=== PATIENT | female | born 1935 | race African-American/Black ===

== ENCOUNTER 2016-08-08 14:02 | Inpatient (IN) | payer MEDICARE, OTHER ==
[2016-08-08] VITALS (7 sets, daily range): BP systolic 118–154; BP diastolic 55–63
[~2016-08-08] VITALS: Ht 160 cm; Wt 71.0 kg
[~2016-08-08 14:02] MED LIST: ALEN5TAB2 PO; ALLO300T PO; ATOR40TA59 PO; BISO1TAB10 PO; FURO20TA3 PO; LISI40TA PO
[2016-08-08] MEDS ORDERED: HEPARIN for IV BOLUS 10,000 UNIT/10 ML VIAL. IV PRN (17:00)
[2016-08-08] MEDS ORDERED: ALLO300T PO (18:06)
[2016-08-08] MEDS ORDERED: LISI-334 PO (18:06)
[2016-08-08] MEDS ORDERED: FURO20TA3 PO (18:06)
[2016-08-08] MEDS ORDERED: GABA-586 PO (18:06)
[2016-08-08] MEDS ORDERED: BISO1TAB45 PO (18:06)
[2016-08-08] MEDS ORDERED: ALEN70TA3 PO (18:06)
[2016-08-08] MEDS ORDERED: AMLO5TAB2 PO (18:06)
[2016-08-08] MEDS: HEPARIN 25,000UTS/500ML PREMIX 500 ML IV PRN (19:46)
[2016-08-08] MEDS: GABAPENTIN 300 MG CAPSULE. PO SCH (21:37)
[2016-08-09] VITALS (16 sets, daily range): BP systolic 86–123; BP diastolic 38–70
--- NOTE | 2016-08-09 00:42 | HP ---
ADMIT DATE: 08/08/2016 CHIEF COMPLAINT: Fall, found down. HISTORY OF PRESENT ILLNESS: The patient is a pleasant elderly female, who fell. She was found down. After 12 hours, she presented to the ER for evaluation and was found to have 3 rib fractures. She also has rhabdomyolysis with a CPK of 4300. She is also in heart failure with a BNP of 15,000. She also has chronic renal insufficiency with a creatinine of ____ and a BUN of 47. She also has leukocytosis of 15,000. I discussed the case with the ER physician. We are going to admit the patient, give her fluids, check frequent labs, and consult Cardiology and Nephrology. PAST MEDICAL HISTORY: Reviewed in the computerized system. Please refer to the computerized H and P. ALLERGIES: None. FAMILY HISTORY: Diabetes. SOCIAL HISTORY: She does not drink, smoke, or take drugs. MEDICATIONS: Reviewed. Please refer to the MRAD. REVIEW OF SYSTEMS: GENERAL: No history of weight change, weakness, or fevers. SKIN: No bruising, hair changes, or rashes. EYES: No blurred, double, or loss of vision. NOSE AND THROAT: No history of nosebleeds, hoarseness, or sore throat. HEART: No history of palpitations, chest pain, or shortness of breath on exertion. LUNGS: Denies cough, hemoptysis, wheezing, or shortness of breath. GASTROINTESTINAL: Denies changes in appetite, nausea, vomiting, diarrhea, or constipation. GENITOURINARY: No history of frequency, urgency, hesitancy, or nocturia. NEUROLOGIC: Denies history of numbness, tingling, or tremor. She complains of weakness. PSYCHIATRIC: No history of panic, anxiety, or depression. ENDOCRINE: No history of heat or cold intolerance, polyuria, or polydipsia. EXTREMITIES: Denies muscle weakness, joint pain, pain on walking, or stiffness. PHYSICAL EXAMINATION: VITAL SIGNS: Temperature afebrile, pulse 68, respirations 18, and blood pressure 144/90. GENERAL: She is awake, weak. HEART: Normal S1, S2. LUNGS: Slight crackles. ABDOMEN: Soft. Positive bowel sounds. EXTREMITIES: With 1+ edema. SKIN: No rashes. PSYCHIATRIC: She is stable. VASCULAR: Good capillary refill. ENDOCRINE: No thyromegaly. LYMPHATICS: No cervical nodes. HEMATOPOIETIC: No bruising. LABORATORY DATA: Troponin is 3.4. ASSESSMENT AND PLAN: Fall with rib fractures, [id number] systolic and diastolic heart failure, rhabdomyolysis, kcbxr-[id number] renal failure, azotemia, leukocytosis, and an elevated troponin of 3.4. The patient has been admitted. We will continue checking serial enzymes. ICU monitoring. Consult Cardiology. Consult Nephrology. Gentle IV fluids. PROGNOSIS: Guarded. COURTNEY MACHADO DO DR: SAUNDRA/patricia JOB#: [id number] / [id number]
--- NOTE | 2016-08-09 01:22 | ACF ---
Admission Forms Criteria MUSCULOSKELETAL DISEASE GRG Clinical Indications for Admission to Inpatient Care (Place 'X' for any and all applicable criteria): Hospital admission is needed for appropriate care of the patient because of 1 or more of the following: [X]I. Fracture, dislocation, or other musculoskeletal injury requiring inpatient care(medical) as indicated by 1 or more of the following(4)(5)(6)(7) [ ]a) Vertebral fracture requiring observation for instability or neurologic compromise (8) [ ]b) Compartment syndrome (proven or cannot be ruled out during observation level of care) (9) [ ]c) Limb-threatening injury [ ]d) Major injury requiring inpatient stabilization such as traction initiation or external fixation before internal fixation or closure of complex or open fracture [X]e) Major injury requiring inpatient treatment after emergency or observation level care (as appropriate) [ ]f) Severe pain requiring acute inpatient management [ ]g) Injury with suspicion of abuse or neglect (eg., child, dependent elderly) [ ]II. Newly diagnosed or suspected bone, joint, or orthopedic device infection (e.g., osteomyelitis, septic arthritis) needing 1 or more of the following(1)(2)(3) [ ]a) IV antibiotics that cannot be initiated in other than inpatient setting (e.g., patient too unstable or home infusion not available) [ ]b) Device removal or replacement [ ]c) Bone or soft tissue debridement [ ]d) Joint drainage (drain placement or repetitive aspirations) [ ]III. Severe rheumatologic disease (e.g., systemic lupus erythematosus, rheumatoid arthritis) with complications or comorbidities (Also use Optimal Recovery Care Criteria or General Recovery Criteria as appropriate on the basis of predominant condition), including 1 or more of the following( 10)(11)(12)(13) [ ]a) Severe infection (e.g., EMB[employer]DED [employer] SOFTWARE ENGINEER infection, sepsis) (14) [ ]b) Respiratory complications, including 1 or more of the following : [ ]i) Pleural effusion with respiratory compromise [ ]ii) Pulmonary hypertension with congestive failure [ ]iii) Respiratory failure [ ]iv) Pulmonary hemorrhage (15) [ ]c) Hematologic disease, including 1 or more of the following: [ ]i) Coagulopathy with bleeding [ ]ii) Thrombosis with hypercoagulable state [ ]iii) Thrombotic thrombocytopenic purpura [ ]d) Cerebritis with seizures, psychosis, or other severe abnormalities [ ]e) Vertebral destruction with monitoring needed for cervical myelopathy& possible respiratory compromise [ ]f) Exacerbation that requires inpatient treatment (e.g., intravenous immunosuppression) (16) [ ]g) Acute renal failure [ ]h) Cerebritis with seizures, psychosis, Altered mental status, or other neurologic abnormalities [ ]i) Pericardial effusion with tamponade [ ]j) Vertebral destruction, with monitoring needed for cervical myelopathy and possible respiratory compromise [ ]IV. Severe vasculitis with complications or comorbidities (Also use Optimal Recovery Care Criteria General Recovery Criteria as appropriate on the basis of predominant condition), including 1 or more of the following(11)(12)(17)(18)(19)(20) [ ]a) Exacerbation that requires inpatient treatment (e.g., intravenous immunosuppression) (19)(21) [ ]b) Pulmonary hemorrhage (15) [ ]c) EMB[employer] SYSTEM[employer] SOFTWARE ENGINEER vasculitis with seizures, psychosis, Altered mental status that is severe or persistent, or other severe abnormalities (22) [ ]d) Cerebral infarction [ ]e) Gastrointestinal ischemia [ ]f) Gangrene or threatened amputation [ ]g) Renal failure (16) [ ]h) Other significant complications of vasculitis ( eg., tissue or organ ischemia, organ dysfunction ) [ ]V. Severe myopathy as indicated by 1 or more of the following (28)(29) [ ]a) New onset of airway compromise or inability to swallow [ ]b) Respiratory deterioration with observation needed for impending respiratory failure [ ]c) Exacerbation that requires inpatient treatment (e.g., intravenous immunosuppression) [ ]. Severe crystal gout (arthropathy) indicated by 1 or more of the following (23)(24) [ ]a) Severe pain requiring acute inpatient management [ ]b) Exacerbation that requires inpatient treatment (e.g., intravenous treatment) [ ]VII.Rhabdomyolysis and 1 or more of the following (25)(26)(27) [ ]a) Acute renal failure [ ]b) Need for intravenous hydration after emergency or observation level care (as appropriate) [ ]c) Inability to maintain oral hydration [ ]d) Change in mental status [ ]e) Electrolyte abnormality that remains after emergency or observation level care (as appropriate) [ ]VIII Post amputation complication, as indicated by ANY ONE of the following [ ]a) Infection [ ]b) Dehiscence [ ]c) Myodesis failure [ ]IX. Severe pain requiring acute inpatient management due to musculoskeletal condition [ ]X. Musculoskeletal Disease and ALL of the following: [ ]a) Symptom or finding for which emergency and observation care have failed or are not considered appropriate (Use General Criteria: Observation Care as appropriate) [ ]b) Presence of ANY ONE of the following [ ]i) A General Admission Criteria [ ]ii) A Pediatric General Admission Criteria The original [facility] [employer] content created by [email or web address] [employer] has been revised. The portions of the content which have been revised are identified through the use of italic text or in bold, and [facility] has neither reviewed nor approved the modified material. All other unmodified content is copyright [facility] [employer]. Please see references footnoted in the original [employer] edition 2016 Admission Criteria Met?: Yes KENDALL PUGH August 09, 2016 01:22
[2016-08-09] MEDS: MORPHINE SULFATE 2 MG/ML DISP.SYRIN. IV PRN ×2 (02:55→07:55)
[2016-08-09 03:00] LABS: HEMATOCRIT 31.9 % (36.0-47.0); HEMOGLOBIN 10.6 g/dL (12.0-15.5); RED BLOOD COUNT 3.57 x10^6/uL (3.50-5.40); RED CELL DISTRIBUTION WIDTH 14.8 % (11.5-14.5); WHITE BLOOD COUNT 11.9 x10^3/uL (4.0-11.0)
[2016-08-09] MEDS: FUROSEMIDE 20 MG TABLET PO SCH (07:55)
[2016-08-09] MEDS: oxyCODONE/APAP 5/325 1 TAB TABLET PO PRN ×2 (07:55→13:13)
[2016-08-09] MEDS: amLODIPine BESYLATE 5 MG TABLET PO SCH (07:55)
[2016-08-09] MEDS: LISINOPRIL 20 MG TABLET PO SCH (07:56)
[2016-08-09] MEDS: GABAPENTIN 300 MG CAPSULE. PO SCH ×3 (07:56→20:54)
--- NOTE | 2016-08-09 08:39 | PDOC2 ---
CARDIOLOGY CONSULT NOTE JADAIF COMPLAINT: Fall Problems: HPI: Patient is a pleasant 80-year-old woman who comes to the hospital in the setting of a syncopal event. She recalls walking in her living room and tripping over some carpet and apparently was lying there for several hours. Her daughter found her and she was transported to [facility] where initial evaluation did not reveal any significant pathology except for a rib fracture. She had multiple abrasions on her knees as well as her right arm. In the setting laboratory evaluation also noted elevated CK of up to 4000 and a elevated troponin of 3.9. Due to these abnormalities she was then transported to [facility]. In speaking with the patient she is quite active. She does not have any dementia. She denies any chest pain, orthopnea, PND or lower extremity edema. She still drives and does all her activities of daily living without any significant limitations. PMHX: Hypertension SOCHX: Denies any alcohol, tobacco or illicit drug use. She lives by herself. 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 FAMHX: Noncontributory CURRENT MEDS: Current Medications Medications (Trade) Dose Ordered Sig/Stacey Start Time Stop Time Status Last Admin Dose Admin Amlodipine Besylate (Norvasc) 5 mg DAILY 08/09/16 09:00 08/09/16 07:55 5 MG Furosemide (Lasix) 20 mg DAILY 08/09/16 09:00 08/09/16 07:55 20 MG Gabapentin (Neurontin) 300 mg TID 08/08/16 21:00 08/09/16 07:56 300 MG Heparin Sodium (Porcine) (Heparin Sodium) 1,600 unit PRN Q6HRS PRN 08/08/16 17:00 08/09/16 03:57 1,600 UNIT Heparin Sodium/ Dextrose 500 ml @ 0 mls/hr CONT PRN 08/08/16 17:00 08/08/16 19:46 0 MLS/HR Lisinopril (Prinivil) 20 mg DAILY 08/09/16 09:00 08/09/16 07:56 20 MG Morphine Sulfate 2 mg PRN Q2HR PRN 08/09/16 02:45 08/09/16 07:55 2 MG Oxycodone/ Acetaminophen (Percocet 5/325) 1 tab PRN Q4HRS PRN 08/09/16 02:45 08/09/16 07:55 1 TAB ALLERGIES: Allergies Coded Allergies Type Severity Reaction Last Updated Verified Sulfa (Sulfonamide Antibiotics) Allergy Severe Swelling 08/09/16 Yes ROS: Negative for 10 out of 14 systems reviewed unless otherwise mentioned above in history of present illness PHYSICAL EXAM: Vital Signs: Vital Signs Date Time Temp Pulse Resp B/P (MAP) Pulse Ox O2 Delivery O2 Flow Rate FiO2 08/09/16 07:56 56 119/61 08/09/16 07:55 21 100 Room Air 08/09/16 04:00 99.8 99.8 I & O Intake and Output 08/09/16 07:00 Intake Total 120 ml Output Total 745 ml Balance -625 ml Intake IV Total 120 ml Output Urine Total 745 ml Physical Exam: In general she is alert and oriented no acute distress. Head and neck exam is unremarkable Regular rate and rhythm without any murmurs rubs gallops Abdomen is soft nontender nondistended Extremities no clubbing cyanosis but minimal edema is present. Bilateral great toes have ecchymoses likely related to the fall. She has an abrasion on her right knee and right forearm. No joint tenderness is noted Neurologically no focal deficits are noted Skin does not have any rashes Normal mood and affect. DIAGNOSTIC TESTING: Cardiac enzymes initially elevated to 3.9 troponin now downtrending to 1.2 EKG with sinus bradycardia and no acute ST-T wave changes Hemoglobin 10.6 Platelets 242 ASSESSMENT: 1. Syncope likely related to mechanical fall 2. Possible rhabdomyolysis 3. Non-ST elevation myocardial infarction with a peak troponin of 3.9 cannot rule out underlying component of rhabdomyolysis leading to elevated troponin 4. Hypertension PLAN: 1. Continue heparin drip. Her troponin is downtrending 2. I discussed the need for possible cardiac catheterization after stabilization and we will pursue this likely prior to discharge. 3. Repeat basic metabolic panel and evaluate renal function Continue current medical therapy with excellent blood pressure control. We'll follow along closely. Discussed with family at bedside. SRIDEVI LEWIS MD August 09, 2016 08:39
--- NOTE | 2016-08-09 08:44 | CARD ---
APPROVED REPORT EXAM: Two-dimensional and M-mode echocardiogram with Doppler and color Doppler. Other Information Quality : Fair INDICATION Non STEMI 2D DIMENSIONS Left Atrium(2D)3.8 (1.6-4.0cm)IVSd1.2 (0.7-1.1cm) Aortic Root(2D)2.9 (2.0-3.7cm)LVDd4.6 (3.9-5.9cm) LVOT Diameter2.2 (1.8-2.4cm)PWd1.0 (0.7-1.1cm) LVDs3.0 (2.5-4.0cm)LVEF(%)50.0 (>50%) Aortic Valve AoV Peak Ifeanyi.157.3cm/sAoV VTI37.1cm AO Peak GR.9.9mmHgLVOT VTI 22.27cm AO Mean GR.5mmHgAVA (VTI)2.30cm2 Mitral Valve MV E Rtrpagij48.1cm/sMV E Peak Gr.5mmHg MV DECEL [id number] A Uyffodje520.4cm/s MV E Mean Gr.2mmHgE/A Ratio0.7 MV A [id number] TDI Lateral E' P. V8.75cm/sMedial E' P. V5.15cm/s E/Lateral E'10.0E/Medial E'16.9 Tricuspid Valve TR P. Osdqrqoh527du/sRAP PJDMJERW1mzXb TR Peak Gr.54keUhTZHO51gaDu Pulmonary Vein S1 Wqlnfbjs43.6cm/sS2 Crafbnaw39.19cm/s D2 Ddcoburz71.2cm/sPVa [id number] LEFT VENTRICLE The left ventricle is normal size. There is mild asymmetric septal left ventricular hypertrophy. The Ejection Fraction is 55%. There is mild hypokinesis in the basal to mid inferolateral wall. Remainder the LV has normal wall motion. Transmitral Doppler flow pattern is Grade I-abnormal relaxation patte rn. RIGHT VENTRICLE The right ventricle is normal size. The right ventricular systolic function is normal. ATRIA The left atrium is mildly dilated. The right atrium size is normal. The interatrial septum is intact with no evidence for an atrial septal defect or patent foramen ovale as noted on 2-D or Doppler imagi ng. AORTIC VALVE The aortic valve is moderately sclerotic but appears to be trileaflet. Doppler and Color Flow reveale d no significant aortic regurgitation. There is no significant aortic valvular stenosis. MITRAL VALVE The mitral valve is thickened but opens well. Posterior mitral annular calcification is mild. There i s no evidence of mitral valve prolapse. There is no mitral valve stenosis. Doppler and Color-flow rev ealed trace mitral regurgitation. TRICUSPID VALVE The tricuspid valve is normal in structure and function. Doppler and Color Flow revealed trace tricus pid regurgitation. The PA pressure was estimated at 36 mmHg. There is no tricuspid valve stenosis. PULMONIC VALVE Doppler and Color Flow revealed no pulmonic valvular regurgitation. There is no pulmonic valvular eddie nosis. GREAT VESSELS The aortic root is normal in size. The ascending aorta is normal in size. The IVC is normal in size a nd collapses >50% with inspiration. PERICARDIAL EFFUSION There is no evidence of significant pericardial effusion. Critical Notification Critical Value: No <Conclusion> There is mild hypokinesis in the basal to mid inferolateral wall. Remainder the LV has normal wall mo tion. Doppler and Color Flow revealed trace tricuspid regurgitation. The PA pressure was estimated at 36 mm Hg. The Ejection Fraction is 55%.
--- NOTE | 2016-08-09 09:10 | PDOC ---
PROGRESS NOTES Chief Complaint Chief Complaint s/p fall w/ rib fx rhabdomyolysis ASSESSMENT AND PLAN: 1. Rib fx: s/p fall, ? mechanical vs syncope. pain control adequate 2. Rhabdomyolysis: monitor CKs (labs pending) 3. NITHIN: 2/2 above. IVF, monitor labs 4. CKD: unknown baseline; Dr Wick follow 5. CHF exacerbation: current echo with EF 55%, mild diastolic dysfxn. 6. NSTEMI: troponins trending down. appreciate Dr Chapman's input. cath in near future; remains on heparin gtt History of Present Illness History of Present Illness feels better, rib pain well controlled with current regimen. no SOB or BAILEY Vitals Vitals Vital Signs Date Time Temp Pulse Resp B/P (MAP) Pulse Ox O2 Delivery O2 Flow Rate FiO2 08/09/16 07:56 56 119/61 08/09/16 07:55 21 100 Room Air 08/09/16 04:00 99.8 99.8 Physical Exam General: Alert, Cooperative, No acute distress Heart: Regular rate Lungs: Clear Abdomen: Normal bowel sounds, No tenderness Extremities: No clubbing, No cyanosis Labs LABS Laboratory Tests Test 08/08/16 18:10 08/09/16 02:00 08/09/16 03:25 08/09/16 08:21 Heparin Anti-Xa Act, Unfractionated < 0.10 IU/mL (0.30-0.70) < 0.10 IU/mL (0.30-0.70) Troponin I Quantitative 2.445 ng/mL (0.000-0.055) 1.726 ng/mL (0.000-0.055) White Blood Count 11.9 x10^3/uL (4.0-11.0) Red Blood Count 3.57 x10^6/uL (3.50-5.40) Hemoglobin 10.6 g/dL (12.0-15.5) Hematocrit 31.9 % (36.0-47.0) Mean Corpuscular Volume 89 fL (79-100) Mean Corpuscular Hemoglobin 30 pg (25-35) Mean Corpuscular Hemoglobin Concent 33 g/dL (31-37) Red Cell Distribution Width 14.8 % (11.5-14.5) Platelet Count 242 x10^3/uL (140-400) Glucose (Fingerstick) 115 mg/dL (70-99) RICHARD BENTON MD August 09, 2016 09:10
[2016-08-09] MEDS: IV NORMAL SALINE 1000ML BAG 1,000 ML IV SCH ×2 (09:13→20:54)
[2016-08-09 09:58] LABS: BASO # 0.1 x10^3/uL (0.0-0.2); BASO % 1 % (0-3); EOS % 1 % (0-3); HEMATOCRIT 31.6 % (36.0-47.0); HEMOGLOBIN 10.8 g/dL (12.0-15.5); LYMPH # 1.5 x10^3/uL (1.0-4.8); LYMPH % 14 % (24-48); MEAN CORPUSCULAR HEMOGLOBIN 31 pg (25-35); MEAN CORPUSCULAR HGB CONC 34 g/dL (31-37); MEAN CORPUSCULAR VOLUME 90 fL (79-100); MONO % 8 % (0-9); NEUT % 77 % (31-73); PLATELET COUNT 236 x10^3/uL (140-400); RED BLOOD COUNT 3.52 x10^6/uL (3.50-5.40); RED CELL DISTRIBUTION WIDTH 14.8 % (11.5-14.5)
[2016-08-09 10:15] LABS: CALCIUM 8.5 mg/dL (8.5-10.1); CREATININE 1.6 mg/dL (0.6-1.0); GFR 37.5
[2016-08-09 10:44] LABS: ALBUMIN 2.4 g/dL (3.4-5.0); DIRECT BILIRUBIN 0.2 mg/dL (0.0-0.2); TOTAL BILIRUBIN 0.7 mg/dL (0.2-1.0); TOTAL PROTEIN 6.5 g/dL (6.4-8.2)
--- NOTE | 2016-08-09 20:39 | CONS ---
DATE OF CONSULTATION: 08/09/2016 REQUESTING PHYSICIAN: Hospitalist. REASON FOR CONSULTATION: Renal failure. HISTORY OF PRESENT ILLNESS: This is an 80-year-old female with history of diabetes mellitus, hypertension, and chronic kidney disease. The patient is currently admitted after sustaining fall. She was found down after approximately 12 hours. She has rib fractures and also has increased CPK of 4300. ____ known history of renal disease and acute issues, Nephrology evaluation is requested. PAST MEDICAL HISTORY: Diabetes mellitus, hypertension, and chronic kidney disease, stage 3. ALLERGIES: SULFA AND GLYBURIDE. MEDICATIONS: Noted and include lisinopril. FAMILY HISTORY: Noncontributory. SOCIAL HISTORY: The patient resides independently, nonsmoker, nondrinker of alcohol. REVIEW OF SYSTEMS: No headaches, sinus problem, nasal drainage, epistaxis, or change in vision or hearing. No difficulty with swallowing. No fever or chills. No cough, sputum production, or hemoptysis. No chest pain, shortness of breath, PND, orthopnea, or dyspnea on exertion. No abdominal pain. No upper or lower gastrointestinal blood loss. No nausea, vomiting, diarrhea, seizures, or malignancies. PHYSICAL EXAMINATION: GENERAL: The patient awake, conversant. HEENT: Clear. NECK: No increased JVD. No thyromegaly, mass, or adenopathy. LUNGS: Clear. CARDIAC: Without S3 or rub. ABDOMEN: Soft and nontender. EXTREMITIES: Bilateral lower extremity edema, 1+. NEUROLOGIC: Nonfocal localizing. PSYCHIATRIC: Fair attention to detail, appropriate affect. IMPRESSION: 1. Rhabdomyolysis, status post fall with immobility. 2. Chronic kidney disease, stage 3, in the setting of hypertension/ischemic renal disease and diabetes mellitus. RECOMMENDATIONS: 1. IV fluid administration. 2. Follow response to the above to include CK enzyme. BETINA CHOWDARY MD DR: JELANI/patricia JOB#: [id number] / [id number]
[2016-08-09] MEDS: HEPARIN 25,000UTS/500ML PREMIX 500 ML IV PRN (20:56)
[2016-08-10] VITALS (8 sets, daily range): BP systolic 122–136; BP diastolic 45–61
[2016-08-10 02:09] LABS: BASO # 0.1 x10^3/uL (0.0-0.2); BASO % 1 % (0-3); EOS % 2 % (0-3); HEMATOCRIT 28.3 % (36.0-47.0); HEMOGLOBIN 9.6 g/dL (12.0-15.5); LYMPH # 2.2 x10^3/uL (1.0-4.8); LYMPH % 22 % (24-48); MEAN CORPUSCULAR HEMOGLOBIN 30 pg (25-35); MEAN CORPUSCULAR HGB CONC 34 g/dL (31-37); MEAN CORPUSCULAR VOLUME 89 fL (79-100); MONO % 9 % (0-9); NEUT % 66 % (31-73); PLATELET COUNT 225 x10^3/uL (140-400); RED BLOOD COUNT 3.18 x10^6/uL (3.50-5.40)
[2016-08-10 03:18] LABS: ALBUMIN 2.3 g/dL (3.4-5.0); ALBUMIN/GLOBULIN RATIO 0.6 (1.0-1.7); CALCIUM 7.9 mg/dL (8.5-10.1); CREATININE 1.5 mg/dL (0.6-1.0); GFR 40.4; POTASSIUM 3.9 mmol/L (3.5-5.1); TOTAL BILIRUBIN 0.5 mg/dL (0.2-1.0); TOTAL PROTEIN 5.9 g/dL (6.4-8.2)
[2016-08-10 03:28] LABS: CKMB MASS 3.6 ng/mL (0.0-3.6)
[2016-08-10] MEDS: IV NORMAL SALINE 1000ML BAG 1,000 ML IV SCH ×2 (04:51→15:30)
[2016-08-10] MEDS: amLODIPine BESYLATE 5 MG TABLET PO SCH (08:55)
[2016-08-10] MEDS: GABAPENTIN 300 MG CAPSULE. PO SCH ×3 (08:55→21:05)
[2016-08-10] MEDS: FUROSEMIDE 20 MG TABLET PO SCH (08:55)
[2016-08-10] MEDS: LISINOPRIL 20 MG TABLET PO SCH (08:55)
--- NOTE | 2016-08-10 10:13 | PDOC ---
Provider Note Provider Note Brief cardiology f/u note Discussed with patient and family about heart cath versus stress testing. They prefer MPI (given no risk of FRANKIE or HD), which is very reasonable given that her troponin elevation (albeit quite high for rhabdo) is most likely related to the fall rather than coronary ischemia. No chest pain. or dyspnea. Supportive care with current meds. Will plan for MPI tomorrow and if this is significant abnormal, then will pursue cath. SRIDEVI LEWIS MD August 10, 2016 10:13
[2016-08-10] MEDS: ASPIRIN ENTERIC COATED 81 MG TABLET.DR. PO SCH (11:30)
--- NOTE | 2016-08-10 12:16 | PDOC ---
PROGRESS NOTES Subjective Subjective SEEN IN FOLLOW UP OF CKD3 Objective Objective Vital Signs Date Time Temp Pulse Resp B/P (MAP) Pulse Ox O2 Delivery O2 Flow Rate FiO2 08/10/16 10:41 98.9 61 131/61 (84) 95 Room Air 98.9 08/10/16 07:30 19 Intake and Output 08/10/16 07:00 Intake Total 2751 ml Output Total 1430 ml Balance 1321 ml Intake Oral 360 ml IV Total 2391 ml Output Urine Total 1430 ml Physical Exam Abdomen: Normal bowel sounds, Soft, No tenderness, No hepatosplenomegaly, No masses Heart: Regular rate, Normal S1, Normal S2, No murmurs, Gallops Extremities: No clubbing, No cyanosis, No edema, Normal pulses, No tenderness/ swelling General: Alert, Oriented X3, Cooperative, No acute distress Lungs: Clear to auscultation, Normal air movement Psych/Mental Status: Mental status NL, Mood NL Diagnosis RENAL FAILURE: Chronic (CKD stage III) Plan Plan of Care CONT FLUID BALANCE. SHE IS AT BASELINE GFR. CPK DECLINING Comment Review of Relevant I have reviewed the following items rashad (where applicable) has been applied. Labs Laboratory Tests Test 08/08/16 18:10 08/08/16 18:45 08/09/16 02:00 08/09/16 03:25 Heparin Anti-Xa Act, Unfractionated < 0.10 IU/mL (0.30-0.70) < 0.10 IU/mL (0.30-0.70) Troponin I Quantitative 2.445 ng/mL (0.000-0.055) 1.726 ng/mL (0.000-0.055) Nasal Screen MRSA (PCR) Negative (Negative) White Blood Count 11.9 x10^3/uL (4.0-11.0) Red Blood Count 3.57 x10^6/uL (3.50-5.40) Hemoglobin 10.6 g/dL (12.0-15.5) Hematocrit 31.9 % (36.0-47.0) Mean Corpuscular Volume 89 fL (79-100) Mean Corpuscular Hemoglobin 30 pg (25-35) Mean Corpuscular Hemoglobin Concent 33 g/dL (31-37) Red Cell Distribution Width 14.8 % (11.5-14.5) Platelet Count 242 x10^3/uL (140-400) Test 08/09/16 08:21 08/09/16 09:50 08/09/16 18:50 08/10/16 02:00 Glucose (Fingerstick) 115 mg/dL (70-99) White Blood Count 11.0 x10^3/uL (4.0-11.0) 10.0 x10^3/uL (4.0-11.0) Red Blood Count 3.52 x10^6/uL (3.50-5.40) 3.18 x10^6/uL (3.50-5.40) Hemoglobin 10.8 g/dL (12.0-15.5) 9.6 g/dL (12.0-15.5) Hematocrit 31.6 % (36.0-47.0) 28.3 % (36.0-47.0) Mean Corpuscular Volume 90 fL (79-100) 89 fL (79-100) Mean Corpuscular Hemoglobin 31 pg (25-35) 30 pg (25-35) Mean Corpuscular Hemoglobin Concent 34 g/dL (31-37) 34 g/dL (31-37) Red Cell Distribution Width 14.8 % (11.5-14.5) 15.0 % (11.5-14.5) Platelet Count 236 x10^3/uL (140-400) 225 x10^3/uL (140-400) Neutrophils (%) (Auto) 77 % (31-73) 66 % (31-73) Lymphocytes (%) (Auto) 14 % (24-48) 22 % (24-48) Monocytes (%) (Auto) 8 % (0-9) 9 % (0-9) Eosinophils (%) (Auto) 1 % (0-3) 2 % (0-3) Basophils (%) (Auto) 1 % (0-3) 1 % (0-3) Neutrophils # (Auto) 8.4 x10^3uL (1.8-7.7) 6.6 x10^3uL (1.8-7.7) Lymphocytes # (Auto) 1.5 x10^3/uL (1.0-4.8) 2.2 x10^3/uL (1.0-4.8) Monocytes # (Auto) 0.9 x10^3/uL (0.0-1.1) 0.9 x10^3/uL (0.0-1.1) Eosinophils # (Auto) 0.1 x10^3/uL (0.0-0.7) 0.2 x10^3/uL (0.0-0.7) Basophils # (Auto) 0.1 x10^3/uL (0.0-0.2) 0.1 x10^3/uL (0.0-0.2) Heparin Anti-Xa Act, Unfractionated 0.52 IU/mL (0.30-0.70) 0.60 IU/mL (0.30-0.70) 0.27 IU/mL (0.30-0.70) Sodium Level 142 mmol/L (136-145) 141 mmol/L (136-145) Potassium Level 4.0 mmol/L (3.5-5.1) 3.9 mmol/L (3.5-5.1) Chloride Level 106 mmol/L (98-107) 107 mmol/L (98-107) Carbon Dioxide Level 27 mmol/L (21-32) 25 mmol/L (21-32) Anion Gap 9 (6-14) 9 (6-14) Blood Urea Nitrogen 44 mg/dL (7-20) 46 mg/dL (7-20) Creatinine 1.6 mg/dL (0.6-1.0) 1.5 mg/dL (0.6-1.0) Estimated GFR (Cockcroft-Gault) 37.5 40.4 Glucose Level 177 mg/dL (70-99) 123 mg/dL (70-99) Calcium Level 8.5 mg/dL (8.5-10.1) 7.9 mg/dL (8.5-10.1) Total Bilirubin 0.7 mg/dL (0.2-1.0) 0.5 mg/dL (0.2-1.0) Direct Bilirubin 0.2 mg/dL (0.0-0.2) Aspartate Amino Transf (AST/SGOT) 87 U/L (15-37) 64 U/L (15-37) Alanine Aminotransferase (ALT/SGPT) 47 U/L (14-59) 42 U/L (14-59) Alkaline Phosphatase 67 U/L (46-116) 62 U/L (46-116) Creatine Kinase 1963 U/L (26-192) 1224 U/L (26-192) Total Protein 6.5 g/dL (6.4-8.2) 5.9 g/dL (6.4-8.2) Albumin 2.4 g/dL (3.4-5.0) 2.3 g/dL (3.4-5.0) BUN/Creatinine Ratio 31 (6-20) Magnesium Level 2.0 mg/dL (1.8-2.4) Creatine Kinase MB (Mass) 3.6 ng/mL (0.0-3.6) Creatine Kinase MB Relative Index 0.3 % (0-4) Albumin/Globulin Ratio 0.6 (1.0-1.7) Test 08/10/16 09:00 Heparin Anti-Xa Act, Unfractionated 0.53 IU/mL (0.30-0.70) Laboratory Tests Test 08/09/16 18:50 08/10/16 02:00 08/10/16 09:00 Heparin Anti-Xa Act, Unfractionated 0.60 IU/mL (0.30-0.70) 0.27 IU/mL (0.30-0.70) 0.53 IU/mL (0.30-0.70) White Blood Count 10.0 x10^3/uL (4.0-11.0) Red Blood Count 3.18 x10^6/uL (3.50-5.40) Hemoglobin 9.6 g/dL (12.0-15.5) Hematocrit 28.3 % (36.0-47.0) Mean Corpuscular Volume 89 fL (79-100) Mean Corpuscular Hemoglobin 30 pg (25-35) Mean Corpuscular Hemoglobin Concent 34 g/dL (31-37) Red Cell Distribution Width 15.0 % (11.5-14.5) Platelet Count 225 x10^3/uL (140-400) Neutrophils (%) (Auto) 66 % (31-73) Lymphocytes (%) (Auto) 22 % (24-48) Monocytes (%) (Auto) 9 % (0-9) Eosinophils (%) (Auto) 2 % (0-3) Basophils (%) (Auto) 1 % (0-3) Neutrophils # (Auto) 6.6 x10^3uL (1.8-7.7) Lymphocytes # (Auto) 2.2 x10^3/uL (1.0-4.8) Monocytes # (Auto) 0.9 x10^3/uL (0.0-1.1) Eosinophils # (Auto) 0.2 x10^3/uL (0.0-0.7) Basophils # (Auto) 0.1 x10^3/uL (0.0-0.2) Sodium Level 141 mmol/L (136-145) Potassium Level 3.9 mmol/L (3.5-5.1) Chloride Level 107 mmol/L (98-107) Carbon Dioxide Level 25 mmol/L (21-32) Anion Gap 9 (6-14) Blood Urea Nitrogen 46 mg/dL (7-20) Creatinine 1.5 mg/dL (0.6-1.0) Estimated GFR (Cockcroft-Gault) 40.4 BUN/Creatinine Ratio 31 (6-20) Glucose Level 123 mg/dL (70-99) Calcium Level 7.9 mg/dL (8.5-10.1) Magnesium Level 2.0 mg/dL (1.8-2.4) Total Bilirubin 0.5 mg/dL (0.2-1.0) Aspartate Amino Transf (AST/SGOT) 64 U/L (15-37) Alanine Aminotransferase (ALT/SGPT) 42 U/L (14-59) Alkaline Phosphatase 62 U/L (46-116) Creatine Kinase 1224 U/L (26-192) Creatine Kinase MB (Mass) 3.6 ng/mL (0.0-3.6) Creatine Kinase MB Relative Index 0.3 % (0-4) Total Protein 5.9 g/dL (6.4-8.2) Albumin 2.3 g/dL (3.4-5.0) Albumin/Globulin Ratio 0.6 (1.0-1.7) Medications Current Medications Heparin Sodium/ Dextrose 500 ml @ 0 mls/hr CONT PRN IV SEE I/O RECORD Last administered on 08/09/16t 20:56; Start 08/08/16 at 17:00 Heparin Sodium (Porcine) (Heparin Sodium) 1,600 unit PRN Q6HRS PRN IV FOR UFH LEVEL LESS THAN 0.2 Last administered on 08/09/16 03:57; Start 08/08/16 at 17: 00 Amlodipine Besylate (Norvasc) 5 mg DAILY PO Last administered on 08/10/16 08: 55; Start 08/09/16 at 09:00 Lisinopril (Prinivil) 20 mg DAILY PO Last administered on 08/10/16 08:55; Start 08/09/16 at 09:00 Furosemide (Lasix) 20 mg DAILY PO Last administered on 08/10/16 08:55; Start 08/09/16 at 09:00 Gabapentin (Neurontin) 300 mg TID PO Last administered on 08/10/16 08:55; Start 08/08/16 at 21:00 Morphine Sulfate 2 mg PRN Q2HR PRN IV SEVERE PAIN Last administered on 07:55; Start 08/09/16 at 02:45 Oxycodone/ Acetaminophen (Percocet 5/325) 1 tab PRN Q4HRS PRN PO SEVERE PAIN Last administered on 08/09/16 13:13; Start 08/09/16 at 02:45 Sodium Chloride 1,000 ml @ 100 mls/hr Q10H IV Last administered on 08/10/16 04:51; Start 08/09/16 at 09:15 Aspirin (Ecotrin) 81 mg DAILYWBKFT PO Last administered on 08/10/16 11:30; Start 08/10/16 at 10:30 Active Scripts Active Reported Fosamax (Alendronate Sodium) 70 Mg Tablet 1 Tab PO WEEKLY Gabapentin 300 Mg Capsule 300 Mg PO TID Allopurinol 300 Mg Tablet 1 Tab PO DAILY Ziac 5-6.25 Mg Tablet (Bisoprolol Fumarate/Hctz) 1 Each Tablet 1 Tab PO DAILY Furosemide 20 Mg Tablet 1 Tab PO DAILY Lisinopril 20 Mg Tablet 1 Tab PO DAILY Amlodipine Besylate 5 Mg Tablet 5 Mg PO DAILY Atorvastatin Calcium 40 Mg Tablet 40 Mg PO DAILY Vitals/I & O Vital Sign - Last 24 Hours 08/09/16 08/09/16 08/09/16 08/09/16 13:00 13:13 20:00 20:22 Temp 98.4 98.4 Pulse 58 65 Resp 14 19 18 B/P (MAP) 109/48 (68) 106/47 (66) Pulse Ox 96 58 96 O2 Delivery Room Air Room Air Room Air Room Air 08/09/16 08/10/16 08/10/16 08/10/16 23:10 03:10 07:30 08:00 Temp 98.9 98.6 98.7 98.9 98.6 98.7 Pulse 64 66 68 Resp 18 15 19 B/P (MAP) 123/48 (73) 122/45 (70) 131/54 (79) Pulse Ox 96 97 97 O2 Delivery Room Air Room Air Room Air Room Air 08/10/16 08/10/16 08/10/16 08/10/16 08:00 08:55 08:55 10:41 Temp 98.6 98.9 98.6 98.9 Pulse 66 66 66 61 B/P (MAP) 122/45 (70) 122/45 122/45 131/61 (84) Pulse Ox 97 95 O2 Delivery Room Air Room Air Intake and Output 08/09/16 08/09/16 08/10/16 15:00 23:00 07:00 Intake Total 360 ml 2391 ml Output Total 230 ml 350 ml 850 ml Balance 130 ml -350 ml 1541 ml BETINA CHOWDARY MD August 10, 2016 12:16
--- NOTE | 2016-08-10 17:11 | PDOC ---
PROGRESS NOTES Chief Complaint Chief Complaint s/p fall w/ rib fx rhabdomyolysis ASSESSMENT AND PLAN: 1. Rib fx: s/p fall, ? mechanical vs syncope. pain control adequate 2. Rhabdomyolysis: Cks trending down 3. NITHIN: 2/2 above. essentially resolved 4. CKD: at baseline. appreciate Dr Wick's input 5. CHF exacerbation: current echo with EF 55%, mild diastolic dysfxn. 6. NSTEMI: troponins trending down. appreciate Dr Chapman's input. MPI ( and poss cath) in AM. History of Present Illness History of Present Illness feels better, rib pain well controlled with current regimen. no SOB or BAILEY Vitals Vitals Vital Signs Date Time Temp Pulse Resp B/P (MAP) Pulse Ox O2 Delivery O2 Flow Rate FiO2 08/10/16 15:00 98.3 69 20 128/55 (79) 98 Room Air 98.3 Physical Exam General: Alert, Oriented X3, Cooperative, No acute distress Heart: Regular rate, Normal S1, Normal S2, No murmurs, Gallops Lungs: Clear Abdomen: Normal bowel sounds, Soft, No tenderness, No hepatosplenomegaly, No masses Extremities: No clubbing, No cyanosis, No edema, Normal pulses, No tenderness/ swelling Labs LABS Laboratory Tests Test 08/09/16 18:50 08/10/16 02:00 08/10/16 09:00 08/10/16 16:35 Heparin Anti-Xa Act, Unfractionated 0.60 IU/mL (0.30-0.70) 0.27 IU/mL (0.30-0.70) 0.53 IU/mL (0.30-0.70) 0.50 IU/mL (0.30-0.70) White Blood Count 10.0 x10^3/uL (4.0-11.0) Red Blood Count 3.18 x10^6/uL (3.50-5.40) Hemoglobin 9.6 g/dL (12.0-15.5) Hematocrit 28.3 % (36.0-47.0) Mean Corpuscular Volume 89 fL (79-100) Mean Corpuscular Hemoglobin 30 pg (25-35) Mean Corpuscular Hemoglobin Concent 34 g/dL (31-37) Red Cell Distribution Width 15.0 % (11.5-14.5) Platelet Count 225 x10^3/uL (140-400) Neutrophils (%) (Auto) 66 % (31-73) Lymphocytes (%) (Auto) 22 % (24-48) Monocytes (%) (Auto) 9 % (0-9) Eosinophils (%) (Auto) 2 % (0-3) Basophils (%) (Auto) 1 % (0-3) Neutrophils # (Auto) 6.6 x10^3uL (1.8-7.7) Lymphocytes # (Auto) 2.2 x10^3/uL (1.0-4.8) Monocytes # (Auto) 0.9 x10^3/uL (0.0-1.1) Eosinophils # (Auto) 0.2 x10^3/uL (0.0-0.7) Basophils # (Auto) 0.1 x10^3/uL (0.0-0.2) Sodium Level 141 mmol/L (136-145) Potassium Level 3.9 mmol/L (3.5-5.1) Chloride Level 107 mmol/L (98-107) Carbon Dioxide Level 25 mmol/L (21-32) Anion Gap 9 (6-14) Blood Urea Nitrogen 46 mg/dL (7-20) Creatinine 1.5 mg/dL (0.6-1.0) Estimated GFR (Cockcroft-Gault) 40.4 BUN/Creatinine Ratio 31 (6-20) Glucose Level 123 mg/dL (70-99) Calcium Level 7.9 mg/dL (8.5-10.1) Magnesium Level 2.0 mg/dL (1.8-2.4) Total Bilirubin 0.5 mg/dL (0.2-1.0) Aspartate Amino Transf (AST/SGOT) 64 U/L (15-37) Alanine Aminotransferase (ALT/SGPT) 42 U/L (14-59) Alkaline Phosphatase 62 U/L (46-116) Creatine Kinase 1224 U/L (26-192) Creatine Kinase MB (Mass) 3.6 ng/mL (0.0-3.6) Creatine Kinase MB Relative Index 0.3 % (0-4) Total Protein 5.9 g/dL (6.4-8.2) Albumin 2.3 g/dL (3.4-5.0) Albumin/Globulin Ratio 0.6 (1.0-1.7) RICHARD BENTON MD August 10, 2016 17:11
[2016-08-10] MEDS: HEPARIN 25,000UTS/500ML PREMIX 500 ML IV PRN (21:04)
[2016-08-11] VITALS (7 sets, daily range): BP systolic 124–173; BP diastolic 56–80
[2016-08-11] MEDS: IV NORMAL SALINE 1000ML BAG 1,000 ML IV SCH ×2 (01:19→11:15)
[2016-08-11] MEDS: oxyCODONE/APAP 5/325 1 TAB TABLET PO PRN (01:21)
[2016-08-11 05:33] LABS: CALCIUM 7.8 mg/dL (8.5-10.1); CREATININE 1.3 mg/dL (0.6-1.0); GFR 47.7; POTASSIUM 3.9 mmol/L (3.5-5.1)
[2016-08-11] MEDS ORDERED: REGADENOSON 0.4 MG/5 ML DISP.SYRIN. IV ONE (08:15)
[2016-08-11] MEDS: GABAPENTIN 300 MG CAPSULE. PO SCH ×3 (10:10→21:56)
[2016-08-11] MEDS: FUROSEMIDE 20 MG TABLET PO SCH (10:11)
[2016-08-11] MEDS: LISINOPRIL 20 MG TABLET PO SCH (10:11)
[2016-08-11] MEDS: ASPIRIN ENTERIC COATED 81 MG TABLET.DR. PO SCH (10:11)
[2016-08-11] MEDS: amLODIPine BESYLATE 5 MG TABLET PO SCH (10:11)
--- NOTE | 2016-08-11 10:26 | PDOC ---
SHANIA ARNETT CALL CENTRE SUPERVISOR 08/11/16 1026: CARDIO Progress Notes Date and Time Date of Service 08/11/16 Time of Evaluation 1035 Subjective Subjective: No Chest Pain, No shortness of breath, No Palpitations Comments: no acute events overnight on telemetry Vitals Vitals Vital Signs Date Time Temp Pulse Resp B/P (MAP) Pulse Ox O2 Delivery O2 Flow Rate FiO2 08/11/16 07:00 98.8 62 20 138/61 (86) 100 Room Air 98.8 Weight Weight [ ] Input and Output Intake and Output Intake and Output 08/11/16 06:59 Intake Total 4340 ml Output Total 2650 ml Balance 1690 ml Intake Oral 880 ml IV Total 1460 ml Other 2000 ml Output Urine Total 2650 ml Laboratory Labs Laboratory Tests Test 08/10/16 16:35 08/11/16 04:32 08/11/16 06:20 Heparin Anti-Xa Act, Unfractionated 0.50 IU/mL (0.30-0.70) 0.45 IU/mL (0.30-0.70) Sodium Level 142 mmol/L (136-145) Potassium Level 3.9 mmol/L (3.5-5.1) Chloride Level 109 mmol/L (98-107) Carbon Dioxide Level 22 mmol/L (21-32) Anion Gap 11 (6-14) Blood Urea Nitrogen 30 mg/dL (7-20) Creatinine 1.3 mg/dL (0.6-1.0) Estimated GFR (Cockcroft-Gault) 47.7 Glucose Level 110 mg/dL (70-99) Calcium Level 7.8 mg/dL (8.5-10.1) Physical Exam HEENT: Neck Supple W Full Motion Chest: Symmetric LUNGS: Clear to Auscultation Heart: S1S2, RRR, no murmurs Abdomen: Soft N/T Extremities: 2+ Dorsalis Pedis, No Calf Tenderness, Other (1+ LE edema. RUE 1+ edema ) Neurology: alert, oriented, follow commands Assessment Assessment 1. Syncope 2. Rhabdomyolysis 3. NSTEMI 4. Hypertension 5. Chronic kidney disease Recommendations MPI underway today. If no evidence of reversible ischemia noted, will discontinue heparin gtt. Consider for event monitor to r/o significant arrhythmia contributing to syncopal episode. Recommend discontinuing IVF if okay with nephrology. Continue support care. SRIDEVI LEWIS MD 08/11/16 2233: CARDIO Progress Notes Plan Plan Pt. seen and examined. Agree with above DUMP MOTORMAN note. No acute events overnight. Reports feeling better. LE edema improved. MPI with fixed defect. Will defer cath for now. Supportive care. Will follow up on an outpt basis. PT/OT eval pending. SHANIA ARNETT APRN August 11, 2016 10:26 SRIDEVI LEWIS MD August 11, 2016 22:33
--- NOTE | 2016-08-11 12:37 | RAD ---
APPROVED REPORT Test Type: Pharmacological Stress Nurse/Tech: Millicent Raza R.N. Test Indications: chest pain Cardiac History: Family history, Hypertension, High cholesterol, Diabetes Medications: See Electronic Medical Record Medical History: See Electronic Medical Record Resting ECG: NSR Resting Heart Rate: 63 bpm Resting Blood Pressure: 161/64mmHg Pretest Chest Pain: Atypical angina Nurse/Tech Notes S1S2. lungs sound clear Consent: The procedure was explained to the patient in lay terms. Informed consent was witnessed. Azael eout was entered into [employer]. History and Stress Test performed by Millicent Raza R.N. Pharm. Details Pharmacologic stress testing was performed using 0.4mg per 5ml of regadenoson given intravenously ove r 7-10 seconds. Stress Symptoms Dyspnea POST EXERCISE Reason for Termination: Infusion complete Max HR: 83 bpm Max Blood Pressure: 154/49mmHg Blood Pressure response to exercise: Normal blood pressure response during stress. Chest Pain: No. Arrhythmia: Yes. rare PVC ST Change: No. INTERPRETATION Stress EKG Conclusion: No evidence of stress induced EKG changes. Imaging Protocol IMAGE PROTOCOL: Rest Tc-99m/stress Tc-99m 1 day Rest: Stress: Viability: Radiopharm.Tc99m [id number] Sestamibi Dose12.4mCi 33.1mCi Duration 15min. 10min. Img Date 08/11/2016 08/11/2016 Inj-Img Rrai30pha. 90min. Rest Admin Site:IV - Left AntecubitalAdministrator:WANDA Sarmiento Stress Admin Site: IV - Left AntecubitalAdministrator: LAY rPyor, ARRT (R)(N) STRESS DATA End Diast. Vol.114.0mlAv. Heart Rate66.0bpm End Syst. Vol.41.0mlCO Index BSA0.0L/min Myocardial Wpyo299.0gEject. Dhivjocd42.0% Stress Rates Pk. Fill Rate3.03EDV/secLVtime Pk. Fill 237.92msec Pk. Empty Rate3.17ESV/secLVtime Pk. Exwfy096.64msec 04/01 Pk. 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 Cannot rule out diaphragmatic attenuation artifaction. Wall Motion Grossly normal wall motion with an EF > 60% LV Perf. Quant 17 Seg. SSS9.00 17 Seg. SRS8.00 17 Seg. SDS2.00 Stress Defect Extent (% LAD)0.00Rest Defect Extent (% LAD)3.80Rev. Defect Extent (% LAD)0.00 Stress Defect Extent (% LCX) 58.80Rest Defect Extent (% LCX)58.80Rev. Defect Extent (% LCX)0.00 Stress Defect Extent (% RCA)11.10Rest Defect Extent (% RCA)0.00Rev. Defect Extent (% RCA)6.70 Stress Defect Extent (% PALOMA)15.90Rest Defect Extent (% PALOMA)15.20Rev. Defect Extent (% PALOMA)1.30 Other Information Quality:Average Risk Assessment: Low Risk Conclusion 1. No acute stress induced ischemic changes. 2. 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 Cannot rule out art ifact. 3. Normal EF at > 60% 4. Low risk study
--- NOTE | 2016-08-11 14:04 | PDOC ---
PROGRESS NOTES Chief Complaint Chief Complaint s/p fall w/ rib fx rhabdomyolysis ASSESSMENT AND PLAN: 1. Rib fx: s/p fall, ? mechanical vs syncope. pain control adequate 2. Rhabdomyolysis: CKs trending down 3. NITHIN: 2/2 above. essentially resolved. stop IVF 4. CKD: at baseline. 5. CHF exacerbation: current echo with EF 55%, mild diastolic dysfxn. 6. NSTEMI: troponins trending down. appreciate Dr Chapman's input. MPI in progress 7. Dispo: if MPI neg, home later today History of Present Illness History of Present Illness feels better, rib pain well controlled with current regimen. no SOB or BAILEY Vitals Vitals Vital Signs Date Time Temp Pulse Resp B/P (MAP) Pulse Ox O2 Delivery O2 Flow Rate FiO2 08/11/16 10:11 98.6 61 16 140/65 (90) 100 Room Air 98.6 Physical Exam General: Alert, Oriented X3, Cooperative, No acute distress Heart: Regular rate, Normal S1, Normal S2, No murmurs, Gallops Lungs: Clear Abdomen: Normal bowel sounds, Soft, No tenderness, No hepatosplenomegaly, No masses Extremities: No clubbing, No cyanosis, No edema, Normal pulses, No tenderness/ swelling Labs LABS Laboratory Tests Test 08/10/16 16:35 08/11/16 04:32 08/11/16 06:20 Heparin Anti-Xa Act, Unfractionated 0.50 IU/mL (0.30-0.70) 0.45 IU/mL (0.30-0.70) Sodium Level 142 mmol/L (136-145) Potassium Level 3.9 mmol/L (3.5-5.1) Chloride Level 109 mmol/L (98-107) Carbon Dioxide Level 22 mmol/L (21-32) Anion Gap 11 (6-14) Blood Urea Nitrogen 30 mg/dL (7-20) Creatinine 1.3 mg/dL (0.6-1.0) Estimated GFR (Cockcroft-Gault) 47.7 Glucose Level 110 mg/dL (70-99) Calcium Level 7.8 mg/dL (8.5-10.1) Nutrition Consultation Dietary Evaluation: Recommendations by RD: Increase Calorie Intake, Protein supplementation Comments: Rec. supplement diet with high protein foods: -Add skim milk at breakfast -add mongolian yogurt at dinner Provided an alternate menu Rec. a daily MVT and 500 mg Vitamin C/day Expected Outcomes/Goals: meet 75% estimated nutrition needs Malnutrition Findings: Reduced Costume Maker Strength: N/A Weight Status: Overweight RICHARD BENTON MD August 11, 2016 14:03
[2016-08-11] MEDS ORDERED: MAGNESIUM SULFATE 2GM 50 ML IV PRN (14:15)
--- NOTE | 2016-08-11 14:16 | PDOC ---
SUBJECTIVE ROS NITHIN/ CKD III Doign OK overall CVS: no Orthopnea, no CP RESP: no SOB, no CHONG GI: no Nausea, no Vomiting : no Dysuria, no Urgency OBJECTIVE Vital Signs Vital Signs Date Time Temp Pulse Resp B/P (MAP) Pulse Ox O2 Delivery O2 Flow Rate FiO2 08/11/16 10:11 98.6 61 16 140/65 (90) 100 Room Air 98.6 I & 0 Intake and Output 08/11/16 07:00 Intake Total 4340 ml Output Total 2650 ml Balance 1690 ml Intake Oral 880 ml IV Total 1460 ml Other 2000 ml Output Urine Total 2650 ml PHYSICAL EXAM Physical Exam GEN: Awake, Oriented x 3, In no distress EYES: Vision Unchanged, Conjunctiva Normal EN: No EN Drainage, Mucous Membranes moist NECK: no JVD, no JVP, Supple, no Thyromegaly CVS: S1S2, soft Murmur, No Gallop, No Rub,no Edema RESP: no Rales, no Rhonchi,no Acc. Muscle Use GI: BS + ve, NO Bruit, Non Tender, Non Distended : no CVA tenderness, no Suprapubic Tenderness DIAGNOSIS/ASSESSMENT Assessment & Plan ARF: suspect due to Rhabdo - appears to be improving Rhabdo - WOuld like to ct IVF, but will wait for repeat CK to see if still reqd. SUspect < 1000 in am at current rate of decline. Hold Lasix also since EF was good CKD III - HTNSive / NS (as noted with SEv Calcific ASVDz on CT Abd) Current fluid and E-lyte status does not necessitate emergent need for dialysis. Will re-evaluate for dialysis in the am HypoALbuminemia - check Prealb; check UA for Neph Synd ANEMIA; Check Andrews; Aranap as ordered, Transfuse as needed HTN: Current BP meds as reviewed. See orders for changes. ? NSTEMI - Stress test today - If LHC is needed then she will need IVF and NAC Discussed Plan of Care with family [] at bedside [] over the phone Problems: COMMENT/RELEVANT DATA Meds Current Medications Medications (Trade) Dose Ordered Sig/Stacey Start Time Stop Time Status Last Admin Dose Admin Amlodipine Besylate (Norvasc) 5 mg DAILY 08/09/16 09:00 08/11/16 10:11 5 MG Aspirin (Ecotrin) 81 mg DAILYWBKFT 08/10/16 10:30 08/11/16 10:11 81 MG Furosemide (Lasix) 20 mg DAILY 08/09/16 09:00 08/11/16 10:11 20 MG Gabapentin (Neurontin) 300 mg TID 08/08/16 21:00 08/11/16 10:10 300 MG Heparin Sodium (Porcine) (Heparin Sodium) 1,600 unit PRN Q6HRS PRN 08/08/16 17:00 08/09/16 03:57 1,600 UNIT Heparin Sodium/ Dextrose 500 ml @ 0 mls/hr CONT PRN 08/08/16 17:00 08/10/16 21:04 21.8 MLS/HR Lisinopril (Prinivil) 20 mg DAILY 08/09/16 09:00 08/11/16 10:11 20 MG Morphine Sulfate 2 mg PRN Q2HR PRN 08/09/16 02:45 08/09/16 07:55 2 MG Oxycodone/ Acetaminophen (Percocet 5/325) 1 tab PRN Q4HRS PRN 08/09/16 02:45 08/11/16 01:21 1 TAB Regadenoson (Lexiscan) 0.4 mg 1X ONCE 08/11/16 08:15 08/11/16 08:17 DC 08/11/16 09:12 0.4 MG Sodium Chloride 1,000 ml @ 100 mls/hr Q10H 08/09/16 09:15 08/11/16 01:19 100 MLS/HR Lab Laboratory Tests Test 08/10/16 16:35 08/11/16 04:32 08/11/16 06:20 Heparin Anti-Xa Act, Unfractionated 0.50 IU/mL (0.30-0.70) 0.45 IU/mL (0.30-0.70) Sodium Level 142 mmol/L (136-145) Potassium Level 3.9 mmol/L (3.5-5.1) Chloride Level 109 mmol/L (98-107) Carbon Dioxide Level 22 mmol/L (21-32) Anion Gap 11 (6-14) Blood Urea Nitrogen 30 mg/dL (7-20) Creatinine 1.3 mg/dL (0.6-1.0) Estimated GFR (Cockcroft-Gault) 47.7 Glucose Level 110 mg/dL (70-99) Calcium Level 7.8 mg/dL (8.5-10.1) CINDY PAGE MD August 11, 2016 14:16
[2016-08-11 16:40] LABS: BILIRUBIN,URINE NEGATIVE (NEG); GLUCOSE,URINE NEGATIVE (NEG); NITRITE,URINE NEGATIVE (NEG); PH,URINE 5.5; PROTEIN,URINE NEGATIVE (NEG-TRACE)
[2016-08-11 16:51] LABS: BACTERIA,URINE 0 /HPF (0-FEW); SQUAMOUS EPITHELIAL CELL,UR OCC /LPF
[2016-08-11] MEDS ORDERED: ASPI81TA9 PO (17:25)
[2016-08-11] MEDS ORDERED: amLODIPine BESYLATE 5 MG TABLET PO ONE (23:00)
[2016-08-12 03:00] VITALS: BP 144/65
[2016-08-12 03:50] LABS: ALBUMIN 2.3 g/dL (3.4-5.0); CALCIUM 8.2 mg/dL (8.5-10.1); CREATININE 1.1 mg/dL (0.6-1.0); GFR 57.8; PHOSPHORUS 2.9 mg/dL (2.6-4.7); POTASSIUM 4.6 mmol/L (3.5-5.1)
[2016-08-12 03:52] LABS: MAGNESIUM 1.8 mg/dL (1.8-2.4)
[2016-08-12 05:15] LABS: UR PROTEIN RD 14.5 mg/dL (Not Estab.)
[2016-08-12] MEDS ORDERED: ACETAMINOPHEN 500 MG TABLET PO ONE (06:15)
[2016-08-12 07:55] VITALS: BP 153/67
[2016-08-12 08:49] LABS: CHOLESTEROL/HDL RATIO 4.4
[2016-08-12] MEDS ORDERED: amLODIPine BESYLATE 10 MG TABLET PO SCH ×2 (09:00)
[2016-08-12] MEDS ORDERED: METOPROLOL TART IMMED RELEASE 25 MG TABLET. PO SCH (09:00)
[2016-08-12] MEDS: GABAPENTIN 300 MG CAPSULE. PO SCH ×2 (10:15→15:27)
[2016-08-12] MEDS: ASPIRIN ENTERIC COATED 81 MG TABLET.DR. PO SCH (10:16)
[2016-08-12] MEDS: LISINOPRIL 20 MG TABLET PO SCH (10:17)
[2016-08-12 10:42] VITALS: BP 158/67
--- NOTE | 2016-08-12 11:06 | PDOC ---
SUBJECTIVE ROS NITHIN doign and feeling better CVS: no Orthopnea, no CP RESP: no SOB, no CHONG GI: no Nausea, no Vomiting : no Dysuria, no Urgency OBJECTIVE Vital Signs Vital Signs Date Time Temp Pulse Resp B/P (MAP) Pulse Ox O2 Delivery O2 Flow Rate FiO2 08/12/16 10:42 98.3 62 20 158/67 (97) 97 Room Air 98.3 I & 0 Intake and Output 08/12/16 07:00 Intake Total 400 ml Output Total 3400 ml Balance -3000 ml Intake Oral 400 ml Output Urine Total 3400 ml PHYSICAL EXAM Physical Exam GEN: Awake, Oriented x 3, In no distress EYES: Vision Unchanged, Conjunctiva Normal EN: No EN Drainage, Mucous Membranes moist NECK: no JVD, no JVP, Supple, no Thyromegaly CVS: S1S2, soft Murmur, No Gallop, No Rub,no Edema RESP: no Rales, no Rhonchi,no Acc. Muscle Use GI: BS + ve, NO Bruit, Non Tender, Non Distended : no CVA tenderness, no Suprapubic Tenderness DIAGNOSIS/ASSESSMENT Assessment & Plan ARF: suspect due to Rhabdo and dehydration - appears to be improving off IVF and Diuretics. Ck WNl too now Vol dpeltion - ? due to Lasix - do we still need it. Suggest use it prn only or at lower dose if felt to need chronically, Rhabdo - resolved CKD III - HTNSive / NS (as noted with SEv Calcific ASVDz on CT Abd) Current fluid and E-lyte status does not necessitate emergent need for dialysis. Will re-evaluate for dialysis in the am HypoALbuminemia - noted low Prealb; Proteinruia is min by ratio ANEMIA; Check Iron; Aranap as ordered, Transfuse as needed HTN: Current BP meds as reviewed. See orders for changes. ? NSTEMI - Creatis much better currenlty - If LHC is needed then she will need IVF and NAC Discussed Plan of Care with family (daughter) at bedside COMMENT/RELEVANT DATA Meds Current Medications Medications (Trade) Dose Ordered Sig/Stacey Start Time Stop Time Status Last Admin Dose Admin Acetaminophen (Tylenol) 500 mg 1X ONCE 08/12/16 06:15 08/12/16 06:16 DC 08/12/16 06:08 500 MG Amlodipine Besylate (Norvasc) 5 mg DAILY 08/12/16 09:00 08/12/16 10:16 5 MG Aspirin (Ecotrin) 81 mg [id number] 08/10/16 10:30 08/12/16 10:16 81 MG Atorvastatin Calcium (Lipitor) 40 mg QHS 08/12/16 21:00 Furosemide (Lasix) 20 mg DAILY 08/09/16 09:00 08/11/16 14:23 DC 08/11/16 10:11 20 MG Gabapentin (Neurontin) 300 mg TID 08/08/16 21:00 08/12/16 10:15 300 MG Heparin Sodium (Porcine) (Heparin Sodium) 1,600 unit PRN Q6HRS PRN 08/08/16 17:00 08/11/16 16:23 DC 08/09/16 03:57 1,600 UNIT Heparin Sodium/ Dextrose 500 ml @ 0 mls/hr CONT PRN 08/08/16 17:00 08/11/16 16:23 DC 08/10/16 21:04 21.8 MLS/HR Lisinopril (Prinivil) 20 mg DAILY 08/09/16 09:00 08/12/16 10:17 20 MG Magnesium Sulfate/ Dextrose 50 ml @ 25 mls/hr PRN DAILY PRN 08/11/16 14:15 Metoprolol Tartrate (Lopressor) 12.5 mg BID 08/12/16 09:00 08/12/16 10:17 12.5 MG Morphine Sulfate 2 mg PRN Q2HR PRN 08/09/16 02:45 08/09/16 07:55 2 MG Oxycodone/ Acetaminophen (Percocet 5/325) 1 tab PRN Q4HRS PRN 08/09/16 02:45 08/11/16 01:21 1 TAB Regadenoson (Lexiscan) 0.4 mg 1X ONCE 08/11/16 08:15 08/11/16 08:17 DC 08/11/16 09:12 0.4 MG Sodium Chloride 1,000 ml @ 100 mls/hr Q10H 08/09/16 09:15 08/11/16 14:23 DC 08/11/16 01:19 100 MLS/HR Lab Laboratory Tests Test 08/11/16 16:20 08/12/16 02:40 Urine Color Yellow Urine Clarity Clear Urine pH 5.5 Urine Specific [place] 1.010 Urine Protein 14.5 mg/dL (Not Estab.) Urine Glucose (UA) Negative mg/dL (NEG) Urine Ketones (Stick) Negative mg/dL (NEG) Urine Blood Trace (NEG) Urine Nitrite Negative (NEG) Urine Bilirubin Negative (NEG) Urine Urobilinogen Dipstick 1.0 mg/dL (0.2 mg/dL) Urine Leukocyte Esterase Negative (NEG) Urine RBC 1-2 /HPF (0-2) Urine WBC 1-4 /HPF (0-4) Urine Squamous Epithelial Cells Occ /LPF Urine Bacteria 0 /HPF (0-FEW) Urine Creatinine 32.4 mg/dL (Not Estab.) Urine Protein/Creatinine Ratio 448 mg/g creat (0-200) Hemoglobin 9.4 g/dL (12.0-15.5) Sodium Level 140 mmol/L (136-145) Potassium Level 4.6 mmol/L (3.5-5.1) Chloride Level 107 mmol/L (98-107) Carbon Dioxide Level 23 mmol/L (21-32) Anion Gap 10 (6-14) Blood Urea Nitrogen 26 mg/dL (7-20) Creatinine 1.1 mg/dL (0.6-1.0) Estimated GFR (Cockcroft-Gault) 57.8 Glucose Level 107 mg/dL (70-99) Calcium Level 8.2 mg/dL (8.5-10.1) Phosphorus Level 2.9 mg/dL (2.6-4.7) Magnesium Level 1.8 mg/dL (1.8-2.4) Creatine Kinase 285 U/L (26-192) Albumin 2.3 g/dL (3.4-5.0) Triglycerides Level 69 mg/dL (0-150) Cholesterol Level 214 mg/dL (0-200) LDL Cholesterol, Calculated 151 mg/dL (0-100) VLDL Cholesterol, Calculated 14 mg/dL (0-40) Non-HDL Cholesterol Calculated 165 mg/dL (0-129) HDL Cholesterol 49 mg/dL (40-60) Cholesterol/HDL Ratio 4.4 CINDY PAGE MD August 12, 2016 11:06
[2016-08-12 11:39] LABS: % SAT IRON 15 % (15-34); IRON,SERUM 37 ug/dL (50-170)
--- NOTE | 2016-08-12 12:44 | PDOC ---
PROGRESS NOTES Chief Complaint Chief Complaint s/p fall w/ rib fx rhabdomyolysis ASSESSMENT AND PLAN: 1. Rib fx: s/p fall, ? mechanical vs syncope. pain control adequate 2. Rhabdomyolysis: resolved 3. NITHIN: 2/2 above. essentially resolved. stop IVF 4. CKD: at baseline. 5. CHF exacerbation: current echo with EF 55%, mild diastolic dysfxn. 6. NSTEMI: MPI yesterday negative 7. Dispo: to SNF when bed available History of Present Illness History of Present Illness feels well today. ready for rehab Vitals Vitals Vital Signs Date Time Temp Pulse Resp B/P (MAP) Pulse Ox O2 Delivery O2 Flow Rate FiO2 08/12/16 10:42 98.3 62 20 158/67 (97) 97 Room Air 98.3 Physical Exam General: Alert, Oriented X3, Cooperative, No acute distress Heart: Regular rate, No murmurs, Gallops Lungs: Clear Abdomen: Normal bowel sounds, Soft, No tenderness Extremities: No edema Labs LABS Laboratory Tests Test 08/11/16 16:20 08/12/16 02:40 Urine Color Yellow Urine Clarity Clear Urine pH 5.5 Urine Specific [place] 1.010 Urine Protein 14.5 mg/dL (Not Estab.) Urine Glucose (UA) Negative mg/dL (NEG) Urine Ketones (Stick) Negative mg/dL (NEG) Urine Blood Trace (NEG) Urine Nitrite Negative (NEG) Urine Bilirubin Negative (NEG) Urine Urobilinogen Dipstick 1.0 mg/dL (0.2 mg/dL) Urine Leukocyte Esterase Negative (NEG) Urine RBC 1-2 /HPF (0-2) Urine WBC 1-4 /HPF (0-4) Urine Squamous Epithelial Cells Occ /LPF Urine Bacteria 0 /HPF (0-FEW) Urine Creatinine 32.4 mg/dL (Not Estab.) Urine Protein/Creatinine Ratio 448 mg/g creat (0-200) Hemoglobin 9.4 g/dL (12.0-15.5) Reticulocyte Count (auto) 0.8 % (0.5-2.5) Sodium Level 140 mmol/L (136-145) Potassium Level 4.6 mmol/L (3.5-5.1) Chloride Level 107 mmol/L (98-107) Carbon Dioxide Level 23 mmol/L (21-32) Anion Gap 10 (6-14) Blood Urea Nitrogen 26 mg/dL (7-20) Creatinine 1.1 mg/dL (0.6-1.0) Estimated GFR (Cockcroft-Gault) 57.8 Glucose Level 107 mg/dL (70-99) Calcium Level 8.2 mg/dL (8.5-10.1) Phosphorus Level 2.9 mg/dL (2.6-4.7) Magnesium Level 1.8 mg/dL (1.8-2.4) Iron Level 37 ug/dL (50-170) Total Iron Binding Capacity 250 ug/dL (250-450) Iron Saturation 15 % (15-34) Ferritin 132 ng/mL (8-252) Creatine Kinase 285 U/L (26-192) Albumin 2.3 g/dL (3.4-5.0) Triglycerides Level 69 mg/dL (0-150) Cholesterol Level 214 mg/dL (0-200) LDL Cholesterol, Calculated 151 mg/dL (0-100) VLDL Cholesterol, Calculated 14 mg/dL (0-40) Non-HDL Cholesterol Calculated 165 mg/dL (0-129) HDL Cholesterol 49 mg/dL (40-60) Cholesterol/HDL Ratio 4.4 Nutrition Consultation Dietary Evaluation: Recommendations by RD: Increase Calorie Intake, Protein supplementation Comments: Rec. supplement diet with high protein foods: -Add skim milk at breakfast -add malay yogurt at dinner Provided an alternate menu Rec. 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
[2016-08-12 14:59] VITALS: BP 144/58
[2016-08-12] MEDS ORDERED: ATORVASTATIN CALCIUM 40 MG TABLET. PO SCH (21:00)
[2016-08-12] MEDS ORDERED: LISINOPRIL 20 MG TABLET PO SCH (21:00)
--- NOTE | 2016-08-13 21:08 | DS ---
DATE OF DISCHARGE: 08/12/2016 CHIEF COMPLAINT: Status post fall with rib fractures, rhabdomyolysis, NITHIN. HOSPITAL COURSE: The patient is an 80-year-old woman who presented to the Emergency Room after falling at home and being unable to ____ herself. She was brought in by EMS after several hours on the floor. She was found with rib fractures. Also, rhabdomyolysis causing mild NITHIN, which was improved with IV fluids and creatinine returned back to baseline. With IV fluid administration, mild CHF was noted. Echo actually showed normal EF, but mild diastolic dysfunction. For this, she also underwent a stress test, which actually was negative. She was therefore deemed stable by Cardiology service to [facility]hab. PHYSICAL EXAMINATION: Please refer to note from same day. DISCHARGE DIAGNOSES: Mechanical fall with rib fractures, rhabdomyolysis, congestive heart failure, acute kidney injury. DISCHARGE DISPOSITION: To jail. DISCHARGE CONDITION: Improved. DISCHARGE MEDICATIONS: Please refer to MAR. DISCHARGE INSTRUCTIONS: The patient will follow up with her PCP after return to home. RICHARD BENTON MD DR: JOHN/nts JOB#: [id number] / [id number] REJI Carmichael MD
== END 2016-08-12 20:28 | disposition home health service (06) | DRG 280 ==
LOC: 1 WEST ICU 15:23 → 2 NORTH 08-09 19:36
PROVIDERS: ADMIT Internal Medicine; ATTEND Internal Medicine
DX: I21.4 Non-ST elevation (NSTEMI) myocardial infarction (principal); I50.43 Acute on chronic combined systolic (congestive) and diastolic (congestive) heart failure; S22.49XA Multiple fractures of ribs, unspecified side, initial encounter for closed fracture; N17.9 Acute kidney failure, unspecified; M62.82 Rhabdomyolysis; I13.0 Hypertensive heart and chronic kidney disease with heart failure and stage 1 through stage 4 chronic kidney disease, or unspecified chronic kidney disease; W19.XXXA Unspecified fall, initial encounter; N18.3 Chronic kidney disease, stage 3 (moderate); E11.22 Type 2 diabetes mellitus with diabetic chronic kidney disease; R55 Syncope and collapse; D72.829 Elevated white blood cell count, unspecified; D64.9 Anemia, unspecified; E88.09 Other disorders of plasma-protein metabolism, not elsewhere classified; Z83.3 Family history of diabetes mellitus; Z88.2 Allergy status to sulfonamides; Z88.8 Allergy status to other drugs, medicaments and biological substances
CPT/HCPCS: 36415; 78452; 80048; 80053; 80061; 80069; 80076; 81001; 82550; 82553; 82570; 82728; 82947; 83540; 83550; 83735; 84134; 84156; 84484; 85018; 85027; 85045; 85520; 87641; 93017; 93306; 96374; 96375; 96376; A9500; J2270; J2785; J7030; 97110; 97116; 97530; 97535